=== PATIENT | female | born 1960 | race Caucasian/White ===

== ENCOUNTER 2016-08-08 08:51 | Day surgery (SDC) | payer MEDICARE ==
[2016-08-08] MEDS ORDERED: LACTATED RINGERS 1,000 ML IV ONE (09:25)
[2016-08-08] MEDS ORDERED: fentaNYL 100 MCG/2 ML VIAL IVP ONE (10:16)
[2016-08-08] MEDS ORDERED: MIDAZOLAM 2 MG/2 ML VIAL IVP ONE (10:16)
== END 2016-08-08 08:52 | disposition home or self-care (01) ==
PROC: 0DBN8ZX Excision of Sigmoid Colon, Via Natural or Artificial Opening Endoscopic, Diagnostic (ICD-10-PCS; 2016-08-08)
PROC: 0DBL8ZZ Excision of Transverse Colon, Via Natural or Artificial Opening Endoscopic (ICD-10-PCS; 2016-08-08)
PROC: 0DBK8ZZ Excision of Ascending Colon, Via Natural or Artificial Opening Endoscopic (ICD-10-PCS; principal; 2016-08-08 10:00)
DX: Z12.11 Encounter for screening for malignant neoplasm of colon (principal); D12.2 Benign neoplasm of ascending colon; D12.3 Benign neoplasm of transverse colon; K51.90 Ulcerative colitis, unspecified, without complications; I10 Essential (primary) hypertension; G47.33 Obstructive sleep apnea (adult) (pediatric); Z86.73 Personal history of transient ischemic attack (TIA), and cerebral infarction without residual deficits; Z79.01 Long term (current) use of anticoagulants
CPT/HCPCS: 45380; 45385; J7120

== ENCOUNTER 2016-10-05 09:43 | Outpatient (CLI) | payer MEDICARE ==
[2016-10-05 13:48] LABS: BASOPHILS # (AUTO) 0.1 10^3/uL (0.0-0.1); BASOPHILS % (AUTO) 2.2 %; EOSINOPHILS # (AUTO) 0.1 10^3/uL (0.0-0.7); EOSINOPHILS % (AUTO) 1.1 %; HCT - HEMATOCRIT 40.5 % (37.0-47.0); HGB - HEMOGLOBIN 13.4 g/dL (12.0-16.0); LYMPHOCYTES # (AUTO) 0.9 10^3/uL (1.5-3.5); LYMPHOCYTES % (AUTO) 18.8 %; MEAN CORPUSCULAR HEMOGLOBIN 30.2 pg (27.0-31.0); MEAN CORPUSCULAR HGB CONC 33.2 g/dL (32.0-36.0); MEAN CORPUSCULAR VOLUME 91.2 fL (81.0-99.0); MEAN PLATELET VOLUME 8.7 fL (7.9-10.8); MONOCYTES # (AUTO) 0.5 10^3/uL (0.0-1.0); MONOCYTES % (AUTO) 9.8 %; NEUTROPHILS # (AUTO) 3.4 10^3/uL (1.5-6.6); NEUTROPHILS % (AUTO) 68.1 %; NUCLEATED RED BLOOD CELLS AUTO 0.1 /100WBC; RED BLOOD COUNT 4.44 10^6/uL (4.20-5.40); RED CELL DISTRIBUTION WIDTH 13.1 % (12.0-15.0)
[2016-10-05 14:18] LABS: FERRITIN 42.7 ng/mL (11.0-306.8)
== END 2016-10-05 09:44 | disposition home or self-care (01) ==
LOC: LAB.R 09:43
PROVIDERS: ATTEND Internal Medicine
DX: E61.1 Iron deficiency (principal)
CPT/HCPCS: 82607; 82728; 85025

== ENCOUNTER 2017-03-18 15:29 | Outpatient (CLI) | payer MEDICARE ==
[2017-03-18 15:54] LABS: BASOPHILS % (AUTO) 0.6 %; EOSINOPHILS # (AUTO) 0.2 10^3/uL (0.0-0.7); EOSINOPHILS % (AUTO) 2.3 %; HCT - HEMATOCRIT 38.7 % (37.0-47.0); HGB - HEMOGLOBIN 13.2 g/dL (12.0-16.0); LYMPHOCYTES # (AUTO) 0.8 10^3/uL (1.5-3.5); LYMPHOCYTES % (AUTO) 10.7 %; MEAN CORPUSCULAR HEMOGLOBIN 31.3 pg (27.0-31.0); MEAN CORPUSCULAR HGB CONC 34.2 g/dL (32.0-36.0); MEAN CORPUSCULAR VOLUME 91.3 fL (81.0-99.0); MEAN PLATELET VOLUME 7.5 fL (7.9-10.8); MONOCYTES # (AUTO) 0.7 10^3/uL (0.0-1.0); MONOCYTES % (AUTO) 9.4 %; NEUTROPHILS # (AUTO) 5.9 10^3/uL (1.5-6.6); RED BLOOD COUNT 4.24 10^6/uL (4.20-5.40); RED CELL DISTRIBUTION WIDTH 13.4 % (12.0-15.0); UNCORRECTED WHITE BLOOD COUNT 7.7 x10^3/uL; WHITE BLOOD COUNT 7.7 x10^3/uL (4.8-10.8)
[2017-03-18 16:06] LABS: ALBUMIN/GLOBULIN RATIO 0.9 (1.0-2.2); BILIRUBIN,TOTAL 0.5 mg/dL (0.2-1.0); CALCIUM 8.7 mg/dL (8.5-10.3); POTASSIUM 4.2 mmol/L (3.5-5.0); TOTAL PROTEIN 7.9 g/dL (6.7-8.2)
--- NOTE | 2017-03-18 16:25 | XRAY Report ---
TWO VIEW CHEST: 03/18/2017 CLINICAL INDICATION: Fever. COMPARISON: 04/08/2009. FINDINGS: Frontal and lateral views of the chest demonstrate a normal cardiac silhouette. There is a retrocardiac infiltrate present. No effusion or pneumothorax is seen. IMPRESSION: RETROCARDIAC INFILTRATE. JOB #: [id number] EXT JOB #:[id number]
== END 2017-03-18 15:30 | disposition home or self-care (01) ==
LOC: DI 15:29
PROVIDERS: ATTEND Internal Medicine
DX: R91.8 Other nonspecific abnormal finding of lung field (principal); R50.9 Fever, unspecified
CPT/HCPCS: 36415; 71020; 80053; 85025

== ENCOUNTER 2017-04-25 13:22 | Outpatient (CLI) | payer MEDICARE ==
--- NOTE | 2017-04-26 08:59 | XRAY Report ---
DATE OF SERVICE: 04/25/2017 TWO VIEW CHEST: 04/25/2017 COMPARISON: Two view chest 03/18/2017 INDICATION: Community-acquired pneumonia. TECHNIQUE: Two views of the chest. FINDINGS: Interval resolution of retrocardiac infiltrate. No focal consolidation is seen. No pneumothorax or pleural effusion. Mediastinum unremarkable. IMPRESSION: Interval resolution of pneumonia. No evidence of active pulmonary process. TD: 04/25/2017 20:37 [facility]
== END 2017-04-25 13:23 | disposition home or self-care (01) ==
LOC: DI 13:22
PROVIDERS: ATTEND Physician Assistant Medical
DX: J18.9 Pneumonia, unspecified organism (principal)
CPT/HCPCS: 71046

== ENCOUNTER 2018-02-25 13:47 | Outpatient (CLI) | payer MEDICARE ==
[2018-02-25 14:31] LABS: INR 3.2 (0.8-1.2); PT - PROTHROMBIN TIME 35.4 secs (9.9-12.6)
== END 2018-02-25 13:48 | disposition home or self-care (01) ==
LOC: LAB 13:47
PROVIDERS: ATTEND Internal Medicine
DX: D68.9 Coagulation defect, unspecified (principal); D68.59 Other primary thrombophilia; Z79.01 Long term (current) use of anticoagulants
CPT/HCPCS: 36415; 85610

== ENCOUNTER 2018-03-28 11:29 | Outpatient (CLI) | payer MEDICARE | END 2018-03-28 11:30 | disposition home or self-care (01) | LOC: LAB 11:29 | PROVIDERS: ATTEND Internal Medicine | DX: Z79.01 Long term (current) use of anticoagulants (principal); D68.9 Coagulation defect, unspecified; D68.59 Other primary thrombophilia | CPT/HCPCS: 85610 ==

== ENCOUNTER 2018-04-23 13:22 | Outpatient (CLI) | payer MEDICARE | END 2018-04-23 13:23 | disposition home or self-care (01) | LOC: LAB 13:22 | PROVIDERS: ATTEND Internal Medicine | DX: Z79.01 Long term (current) use of anticoagulants (principal); D68.59 Other primary thrombophilia | CPT/HCPCS: 85610 ==

== ENCOUNTER 2018-05-26 09:35 | Outpatient (CLI) | payer MEDICARE ==
[2018-05-26 09:52] LABS: BASOPHILS # (AUTO) 0.1 10^3/uL (0.0-0.1); EOSINOPHILS # (AUTO) 0.2 10^3/uL (0.0-0.7); EOSINOPHILS % (AUTO) 4.9 %; HGB - HEMOGLOBIN 14.1 g/dL (12.0-16.0); LYMPHOCYTES # (AUTO) 0.9 10^3/uL (1.5-3.5); LYMPHOCYTES % (AUTO) 22.8 %; MEAN CORPUSCULAR HEMOGLOBIN 31.2 pg (27.0-31.0); MEAN CORPUSCULAR HGB CONC 34.1 g/dL (32.0-36.0); MEAN CORPUSCULAR VOLUME 91.4 fL (81.0-99.0); MEAN PLATELET VOLUME 8.3 fL (7.9-10.8); MONOCYTES # (AUTO) 0.3 10^3/uL (0.0-1.0); MONOCYTES % (AUTO) 8.6 %; NEUTROPHILS # (AUTO) 2.5 10^3/uL (1.5-6.6); NEUTROPHILS % (AUTO) 60.7 %; PLT - PLATELET COUNT 173 10^3/uL (130-450); RED BLOOD COUNT 4.53 10^6/uL (4.20-5.40); RED CELL DISTRIBUTION WIDTH 13.2 % (12.0-15.0); WHITE BLOOD COUNT 4.1 x10^3/uL (4.8-10.8)
[2018-05-26 10:07] LABS: HB2 TOTAL 15.6 g/dL; HEMOGLOBIN A1C 0.49 g/dL
[2018-05-26 10:37] LABS: CHOLESTEROL 214 mg/dL; GLUCOSE,FASTING 91 mg/dL (70-100); HDL CHOLESTEROL 54 mg/dL; LDL CHOLESTEROL,CALCULATED 134 mg/dL; LDL/HDL RATIO 2.5 (<4.4); VLDL CHOLESTEROL 26 mg/dL
== END 2018-05-26 09:36 | disposition home or self-care (01) ==
LOC: LAB 09:35
PROVIDERS: ATTEND Registered Nurse
DX: Z00.00 Encounter for general adult medical examination without abnormal findings (principal)
CPT/HCPCS: 36415; 80061; 82947; 83036; 83721; 84443; 85025

== ENCOUNTER 2018-06-25 10:13 | Outpatient (CLI) | payer MEDICARE ==
[2018-06-25 10:31] LABS: BASOPHILS % (AUTO) 1.1 %; EOSINOPHILS # (AUTO) 0.1 10^3/uL (0.0-0.7); EOSINOPHILS % (AUTO) 3.6 %; HGB - HEMOGLOBIN 13.2 g/dL (12.0-16.0); LYMPHOCYTES # (AUTO) 0.8 10^3/uL (1.5-3.5); LYMPHOCYTES % (AUTO) 24.5 %; MEAN CORPUSCULAR HEMOGLOBIN 31.2 pg (27.0-31.0); MEAN CORPUSCULAR HGB CONC 33.9 g/dL (32.0-36.0); MEAN CORPUSCULAR VOLUME 91.9 fL (81.0-99.0); MONOCYTES # (AUTO) 0.2 10^3/uL (0.0-1.0); NEUTROPHILS # (AUTO) 2.1 10^3/uL (1.5-6.6); NEUTROPHILS % (AUTO) 64.8 %; PLT - PLATELET COUNT 166 10^3/uL (130-450); RED BLOOD COUNT 4.24 10^6/uL (4.20-5.40); WHITE BLOOD COUNT 3.2 x10^3/uL (4.8-10.8)
== END 2018-06-25 10:14 | disposition home or self-care (01) ==
LOC: LAB 10:13
PROVIDERS: ATTEND Registered Nurse
DX: Z00.00 Encounter for general adult medical examination without abnormal findings (principal)
CPT/HCPCS: 36415; 85025

== ENCOUNTER 2018-07-11 09:52 | Outpatient (CLI) | payer MEDICARE ==
[2018-07-11 10:23] LABS: BASOPHILS # (AUTO) 0.1 10^3/uL (0.0-0.1); BASOPHILS % (AUTO) 2.2 %; EOSINOPHILS # (AUTO) 0.1 10^3/uL (0.0-0.7); HGB - HEMOGLOBIN 13.2 g/dL (12.0-16.0); LYMPHOCYTES # (AUTO) 0.8 10^3/uL (1.5-3.5); LYMPHOCYTES % (AUTO) 17.9 %; MEAN CORPUSCULAR HEMOGLOBIN 31.2 pg (27.0-31.0); MEAN CORPUSCULAR HGB CONC 34.4 g/dL (32.0-36.0); MEAN CORPUSCULAR VOLUME 90.8 fL (81.0-99.0); MEAN PLATELET VOLUME 8.1 fL (7.9-10.8); MONOCYTES # (AUTO) 0.5 10^3/uL (0.0-1.0); MONOCYTES % (AUTO) 11.2 %; NEUTROPHILS % (AUTO) 66.7 %; PLT - PLATELET COUNT 185 10^3/uL (130-450); RED BLOOD COUNT 4.23 10^6/uL (4.20-5.40); RED CELL DISTRIBUTION WIDTH 12.8 % (12.0-15.0); WHITE BLOOD COUNT 4.4 x10^3/uL (4.8-10.8)
[2018-07-11 10:34] LABS: BILIRUBIN,URINE NEGATIVE (NEGATIVE); GLUCOSE, URINE (UA) NEGATIVE (NEGATIVE); KETONES,URINE (UA) NEGATIVE (NEGATIVE); LEUKOCYTE ESTERASE, URINE NEGATIVE (NEGATIVE); NITRITE,URINE NEGATIVE (NEGATIVE); OCCULT BLOOD,URINE NEGATIVE (NEGATIVE); PROTEIN,URINE NEGATIVE (NEGATIVE); UROBILINOGEN,URINE 0.2 (NORMAL) E.U./dL (NORMAL)
[2018-07-11 10:37] LABS: RHEUMATOID FACTOR NEGATIVE (Negative)
[2018-07-11 10:43] LABS: ALBUMIN 4.1 g/dL (3.2-5.5); ALBUMIN/GLOBULIN RATIO 1.3 (1.0-2.2); ALKALINE PHOSPHATASE 91 IU/L (42-121); ALT ALANINE AMINOTRANSFERASE 24 IU/L (10-60); AST ASPARTATE AMINOTRANSFERASE 31 IU/L (10-42); BILIRUBIN,TOTAL 0.7 mg/dL (0.2-1.0); BUN - BLOOD UREA NITROGEN 21 mg/dL (6-20); CALCIUM 9.2 mg/dL (8.5-10.3); CARBON DIOXIDE - CO2 29 mmol/L (21-32); CHLORIDE 101 mmol/L (101-111); CREATININE 0.9 mg/dL (0.4-1.0); GFR - MDRD 64 (>89); GLUCOSE 76 mg/dL (70-100); SODIUM 136 mmol/L (135-145); TOTAL PROTEIN 7.3 g/dL (6.7-8.2)
[2018-07-11 10:44] LABS: CRP - C-REACTIVE PROTEIN < 1.0 mg/dL (0-1.0)
[2018-07-11 10:50] LABS: CLARITY,URINE CLEAR (CLEAR); RBC,URINE 0-5 /HPF (0-5)
[2018-07-11 10:51] LABS: BACTERIA,URINE Few /HPF (None Seen); SQUAMOUS EPITHELIAL CELL,UR RARE Squamous (<= Few)
== END 2018-07-11 09:53 | disposition home or self-care (01) ==
LOC: LAB 09:52
PROVIDERS: ATTEND Internal Medicine Rheumatology
DX: M32.9 Systemic lupus erythematosus, unspecified (principal); M79.7 Fibromyalgia; M25.50 Pain in unspecified joint
CPT/HCPCS: 36415; 80053; 81001; 84443; 85025; 85651; 86140; 86160; 86200; 86225; 86430

== ENCOUNTER 2018-08-15 15:39 | Outpatient (CLI) | payer MEDICARE ==
--- NOTE | 2018-08-18 15:16 | Mammography Report ---
Reason: PREVENTIVE CARE Procedure Date: 08/15/2018 Accession Number: [id number] / [id number] Procedure: CARY - Screening Mammo w/Manav CPT Code: FULL RESULT: EXAM: Screening Mammo w/Manav DATE: 08/15/2018 4:29 PM CLINICAL HISTORY: Nulliparous patient with history of benign left breast biopsy. For routine screening. TECHNIQUE: (B) - Bilateral CC and MLO views were obtained. COMPARISON: 02/20/2016, 09/30/2014, 09/16/2013, 07/15/2012. PARENCHYMAL PATTERN: (F) - The breasts demonstrate diffuse fatty replacement bilaterally. FINDINGS: There is been no significant interval change on the left. There are no suspicious masses, calcifications, or new areas of distortion. On the right there is an 8 mm well-circumscribed nodular density in the retroareolar 2:00 position 2 to 3 cm from the nipple not definitely seen previously. Otherwise no suspicious right breast masses, calcifications, or areas of architectural distortion.. IMPRESSION: Incomplete examination. BI-RADS category 0. Needs additional evaluation right breast. Negative left breast. RECOMMENDATION: (ADDUS) - Targeted ultrasound recommended. Right breast 2:00 position 2 to 3 cm from the nipple. BI-RADS CATEGORY: (0) - Incomplete Examination - need additional evaluation. STANDARD QUALIFYING STATEMENTS: 1. This examination was not reviewed with the aid of Computer-Aided Detection (CAD). 2. A negative or benign imaging report should not preclude biopsy if clinically suspicious findings are present. 3. Dense breasts may obscure an underlying neoplasm. 4. This examination was reviewed with the aid of 3D breast imaging (tomosynthesis).
== END 2018-08-15 15:40 | disposition home or self-care (01) ==
LOC: DI 15:39
PROVIDERS: ATTEND Registered Nurse
DX: Z12.31 Encounter for screening mammogram for malignant neoplasm of breast (principal); R92.8 Other abnormal and inconclusive findings on diagnostic imaging of breast
CPT/HCPCS: 77063; 77067

== ENCOUNTER 2018-08-22 09:59 | Outpatient (CLI) | payer MEDICARE ==
--- NOTE | 2018-08-22 14:44 | Ultrasound Report ---
Reason: ABNORMAL MAMMOGRAM Procedure Date: 08/22/2018 Accession Number: [id number] / [id number] Procedure: US - Breast Unilateral Limited CPT Code: FULL RESULT: EXAM: Breast Unilateral Limited DATE: 08/22/2018 10:45 AM CLINICAL HISTORY: FOLLOW-UP ABNORMAL MAMMOGRAM COMPARISON: Mammogram 08/15/2018. TECHNIQUE: Targeted ultrasound was performed of the right breast in the area of clinical concern at 2 o'clock and 2 centimeter distance from the nipple. Color Doppler was employed as appropriate. FINDINGS: Corresponding to the mammographic finding is a hypoechoic well-circumscribed 2 x 3 x 4 mm avascular nodule with indeterminate through transmission. A few internal echoes are present. IMPRESSION: Probably benign findings right breast. RECOMMENDATION: Follow-up right breast ultrasound in 3 months. BIRADS CATEGORY 3: Probably Benign RADIA
== END 2018-08-22 10:00 | disposition home or self-care (01) ==
LOC: DI 09:59
PROVIDERS: ATTEND Registered Nurse
DX: N63.12 Unspecified lump in the right breast, upper inner quadrant (principal)
CPT/HCPCS: 76642

== ENCOUNTER 2018-11-11 16:21 | Outpatient (CLI) | payer MEDICARE | END 2018-11-11 16:22 | disposition home or self-care (01) | LOC: LAB 16:21 | PROVIDERS: ATTEND Family Medicine | DX: G47.9 Sleep disorder, unspecified (principal) | CPT/HCPCS: 36415; 80335; 81599 ==

== ENCOUNTER 2018-12-19 14:19 | Outpatient (CLI) | payer MEDICARE ==
--- NOTE | 2018-12-19 16:22 | Ultrasound Report ---
Reason: 3 MO F/U - ABN BREAST US Procedure Date: 12/19/2018 Accession Number: [id number] / [id number] Procedure: US - Breast Unilateral Limited CPT Code: FULL RESULT: EXAM: Breast Unilateral Limited DATE: 12/19/2018 4:15 PM CLINICAL HISTORY: 3 MO F/U - ABN BREAST US COMPARISON: 08/15/2018 and 08/22/2018. TECHNIQUE: Targeted ultrasound was performed of the right breast in the area of clinical concern at 2 o'clock and 3 cm distance from the nipple. Color Doppler was employed as appropriate. FINDINGS: A hypoechoic well-circumscribed 0.3 x 0.2 x 0.2 cm nodule is again seen without convincing increased through transmission, possibly due to small size. There are no associated suspicious features. The finding is either smaller or stable in size, probably benign. No suspicious findings are made. IMPRESSION: Probable benign findings RECOMMENDATION: Recommend diagnostic focused right breast ultrasound in 12 months. BIRADS CATEGORY 3 RADIA
== END 2018-12-19 14:20 | disposition home or self-care (01) ==
LOC: DI 14:19
PROVIDERS: ATTEND Nurse Practitioner Obstetrics & Gynecology
DX: R92.8 Other abnormal and inconclusive findings on diagnostic imaging of breast (principal)
CPT/HCPCS: 76642

== ENCOUNTER 2019-01-01 13:35 | Outpatient (CLI) | payer MEDICARE | END 2019-01-01 13:36 | disposition home or self-care (01) | LOC: LAB 13:35 | PROVIDERS: ATTEND Family Medicine | DX: G47.9 Sleep disorder, unspecified (principal) | CPT/HCPCS: 36415; 80335; 81599 ==

== ENCOUNTER 2019-04-13 09:39 | Outpatient (CLI) | payer MEDICARE | END 2019-04-13 09:40 | disposition critical access hospital (66) | LOC: EMS 09:39 | PROVIDERS: ATTEND Surgery | DX: R55 Syncope and collapse (principal); R42 Dizziness and giddiness; R10.32 Left lower quadrant pain; R11.0 Nausea | CPT/HCPCS: A0425; A0427 ==

== ENCOUNTER 2019-04-13 09:52 | Emergency (ER) | payer MEDICARE ==
[2019-04-13 11:02] LABS: ALBUMIN 3.6 g/dL (3.2-5.5); ALBUMIN/GLOBULIN RATIO 1.2 (1.0-2.2); BILIRUBIN,TOTAL 0.5 mg/dL (0.2-1.0); CALCIUM 8.8 mg/dL (8.5-10.3); CREATININE 1.3 mg/dL (0.4-1.0); TOTAL PROTEIN 6.6 g/dL (6.7-8.2)
[2019-04-13 11:05] LABS: BASOPHILS # (AUTO) 0.1 10^3/uL (0.0-0.1); EOSINOPHILS # (AUTO) 0.1 10^3/uL (0.0-0.7); EOSINOPHILS % (AUTO) 1.4 %; HGB - HEMOGLOBIN 12.5 g/dL (12.0-16.0); LYMPHOCYTES # (AUTO) 0.8 10^3/uL (1.5-3.5); LYMPHOCYTES % (AUTO) 15.7 %; MEAN CORPUSCULAR HEMOGLOBIN 30.3 pg (27.0-31.0); MEAN CORPUSCULAR HGB CONC 32.4 g/dL (32.0-36.0); MEAN CORPUSCULAR VOLUME 93.7 fL (81.0-99.0); MEAN PLATELET VOLUME 10.3 fL (7.9-10.8); MONOCYTES # (AUTO) 0.3 10^3/uL (0.0-1.0); MONOCYTES % (AUTO) 6.4 %; NEUTROPHILS # (AUTO) 3.8 10^3/uL (1.5-6.6); NEUTROPHILS % (AUTO) 75.3 %; PLT - PLATELET COUNT 182 10^3/uL (130-450); RED BLOOD COUNT 4.12 10^6/uL (4.20-5.40); RED CELL DISTRIBUTION WIDTH 12.8 % (12.0-15.0)
--- NOTE | 2019-04-13 11:48 | ED Physician Documentation ---
PD HPI SYNCOPE - Stated complaint Stated Complaint: SYNCOPE - Chief complaint Chief Complaint: Neuro - History obtained from History obtained from: Patient, EMS - History of Present Illness Witnessed: Witnessed Timing - onset: Today Duration: Minutes (about 1-2 minutes) Preceding symptoms: Abdominal pain (patient had onset of cramping severe lower abd pain associated with some nausea, and did have some flatulence/gas. the cramping continued and she got up to go to the bathroom and felt lightheaded. Sat down but still lightheaded and witnessed she got pale, eyes rolled back and she passed out. Lasted 1-2 minutes and was awake by EMS arrival. She got up again when they arrived and felt lightheaded and passed out again for few seconds. EMS noted her BP to be low. Alert and awake enroute to the ER.), Light headed. No: Headache, Chest pain, Palpitations, Generalized weakness Associated symptoms: Abdominal pain. No: Incontinant of urine, Chest pain, Palpitations Contributing factors: Noxious stimulae (had lower abd pain start shortly prior to the syncope.), Just stood up. No: Recent med change, Decreased PO intake Injury occurred: No: Fell, Head injury Treatment [employer]: Fluids Similar symptoms before: Has not had sx before Recently seen: Clinic (had skin cancer removed from nose and right side of neck last week, healing okay without infection.) Review of Systems Constitutional: denies: Fever, Chills, Myalgias Nose: denies: Rhinorrhea / runny nose, Congestion Throat: denies: Sore throat Cardiac: denies: Chest pain / pressure Respiratory: denies: Cough GI: reports: Abdominal Pain, Nausea, Constipation (chronic). denies: Abdominal Swelling, Vomiting, Diarrhea, Bloody / black stool : denies: Dysuria, Frequency Musculoskeletal: denies: Neck pain, Back pain Neurologic: reports: Generalized weakness, Syncope, Headache (for a week). denies: Altered mental status, Head injury Endocrine: denies: Weight loss, Easy bruising / bleeding Immunocompromised: denies: Immunocompromised PD PAST MEDICAL HISTORY - Past Medical History Cardiovascular: Hypertension, Arrhythmia Respiratory: Sleep apnea, CPAP use Endocrine/Autoimmune: HyPOthyroidism, Systemic lupus erythematosus, Other GI: None : None HEENT: None Psych: None Musculoskeletal: Osteoarthritis, Fibromyalgia, Other Derm: None - Past Surgical History Past Surgical History: Yes General: Cholecystectomy - Present Medications Home Medications: Ambulatory Orders Medication Instructions Recorded Confirmed Multivitamin [Multiple Vitamins] 1 each PO DAILY 08/07/16 11/11/17 Cyclobenzaprine [Flexeril] 10 mg PO TID PRN 08/08/16 11/11/17 Duloxetine HCl [Cymbalta] 60 mg PO DAILY 08/08/16 11/11/17 Hydrocodone/Acetaminophen [Vicodin 1 each PO ONCE 08/08/16 11/11/17 5-300 mg Tablet] Hydroxychloroquine [Plaquenil] 400 mg PO DAILY 08/08/16 11/11/17 Lisinopril/Hydrochlorothiazide 1 each PO DAILY PM 08/08/16 11/11/17 [Lisinopril-Hctz 20-12.5 mg Tab] Tramadol HCl [Tramadol HCl ER] 300 mg PO BID 08/08/16 11/11/17 Warfarin Sodium 5 mg PO DAILY 08/08/16 11/11/17 Zolpidem Tartrate [Ambien] 10 mg PO DAILY 08/08/16 11/11/17 Nitrofurantoin Monohyd/M-Cryst 100 mg PO BID #10 capsule 04/13/19 [Macrobid 100 mg Capsule] - Allergies Allergies/Adverse Reactions: Allergies Allergy/AdvReac Type Severity Reaction Status Date / Time No Known Drug Allergies Allergy Verified 04/13/19 09:59 - Social History Does the pt smoke?: No Smoking Status: Never smoker Does the pt drink ETOH?: No Does the pt have substance abuse?: No - Immunizations Immunizations are current?: Yes - POLST Patient has POLST: No PD ED PE NORMAL - Vitals Vital signs reviewed: Yes - General General: Alert and oriented X 3, No acute distress, Well developed/nourished - HEENT HEENT: Atraumatic, Pharynx benign, Other (bandage on nose and right neck without signs of surrounding infection. ) - Neck Neck: Supple, no meningeal sign, No adenopathy - Cardiac Cardiac: RRR, No murmur - Respiratory Respiratory: No respiratory distress, Clear bilaterally - Abdomen Abdomen: Normal bowel sounds, Soft, Non distended, No organomegaly, Other (mildly tender LLQ without percussion nor rebound tenderness. ) - Female Female : Deferred - Rectal Rectal: Deferred - Back Back: No CVA TTP - Derm Derm: Normal color, Warm and dry - Extremities Extremities: No tenderness to palpate, Normal ROM s pain, No edema, No calf tenderness / cord - Neuro Neuro: Alert and oriented X 3, No motor deficit, Normal speech Eye Opening: Spontaneous Motor: Obeys Commands Verbal: Oriented GCS Score: 15 - Psych Psych: Normal mood Results - Vitals Vitals: Vital Signs - 24 hr 04/13/19 04/13/19 04/13/19 09:53 10:10 12:00 Temperature 36.6 C Heart Rate 66 58 L 76 Respiratory 20 14 13 Rate Blood Pressure 99/53 L 111/67 119/63 O2 Saturation 95 96 97 04/13/19 04/13/19 14:38 16:00 Temperature Heart Rate 84 83 Respiratory 16 21 Rate Blood Pressure 147/77 H 144/73 H O2 Saturation 100 98 Oxygen O2 Source Room air - EKG (time done) 09:59 Rate: Rate (enter#) (62) Rhythm: NSR [place]: Normal Intervals: Normal [place] QRS: Normal Ischemia: Normal ST segments. No: ST elevation c/w ischemia, ST depression - Labs Labs: Laboratory Tests 04/13/19 04/13/19 04/13/19 10:40 10:40 10:40 WBC 5.0 RBC 4.12 L Hgb 12.5 Hct 38.6 MCV 93.7 MCH 30.3 MCHC 32.4 RDW 12.8 Plt Count 182 MPV 10.3 Neut # (Auto) 3.8 Lymph # (Auto) 0.8 L [place] # (Auto) 0.3 Eos # (Auto) 0.1 Baso # (Auto) 0.1 Absolute Nucleated RBC 0.00 Nucleated RBC % 0.0 PT 23.2 H INR 2.1 H Sodium 137 Potassium 4.6 Chloride 104 Carbon Dioxide 27 Anion Gap 6.0 BUN 16 Creatinine 1.3 H Estimated GFR (MDRD) 42 L Glucose 122 H Lactic Acid Calcium 8.8 Total Bilirubin 0.5 AST 38 ALT 23 Alkaline Phosphatase 86 Total Protein 6.6 L Albumin 3.6 Globulin 3.0 Albumin/Globulin Ratio 1.2 Lipase 50 Urine Color Urine Clarity Urine pH Ur Specific [place] Urine Protein Urine Glucose (UA) Urine Ketones Urine Occult Blood Urine Nitrite Urine Bilirubin Urine Urobilinogen Ur Leukocyte Esterase Urine RBC Urine WBC Urine WBC Clumps Ur Squamous Epith Cells Urine Bacteria Ur Microscopic Review Urine Culture Comments 04/13/19 04/13/19 12:36 12:54 WBC RBC Hgb Hct MCV MCH MCHC RDW Plt Count MPV Neut # (Auto) Lymph # (Auto) [place] # (Auto) Eos # (Auto) Baso # (Auto) Absolute Nucleated RBC Nucleated RBC % PT INR Sodium Potassium Chloride Carbon Dioxide Anion Gap BUN Creatinine Estimated GFR (MDRD) Glucose Lactic Acid 0.8 Calcium Total Bilirubin AST ALT Alkaline Phosphatase Total Protein Albumin Globulin Albumin/Globulin Ratio Lipase Urine Color YELLOW Urine Clarity CLOUDY Urine pH 6.5 Ur Specific [place] 1.015 Urine Protein NEGATIVE Urine Glucose (UA) NEGATIVE Urine Ketones NEGATIVE Urine Occult Blood NEGATIVE Urine Nitrite NEGATIVE Urine Bilirubin NEGATIVE Urine Urobilinogen 1 (NORMAL) Ur Leukocyte Esterase SMALL H Urine RBC 0-5 Urine WBC 11-25 H Urine WBC Clumps PRESENT Ur Squamous Epith Cells RARE Squamous Urine Bacteria Moderate H Ur Microscopic Review INDICATED Urine Culture Comments INDICATED - Rads (name of study) head CT Radiology: Prelim report reviewed (no acute process), See rad report abd/pelvic CT Radiology: Prelim report reviewed (normal, no acute process), See rad report PD MEDICAL DECISION MAKING - ED course Complexity details: re-evaluated patient (feeling better with some IV fluids and meds. Labs and imaging are good. No signs of acute serious process. ), considered differential (had abd pain with syuncope, so concerned for vascular process, internal bleeding, sepsis, as well as peritoneal process, ureterolithiasis, divertic perf, as pain source with secondary vasovagal. ), d/w patient Departure - Departure Disposition: 01 Home, Self Care Clinical Impression: Lower abdominal pain Syncope Qualifiers: Syncope type: vasovagal syncope Qualified Code(s): R55 - Syncope and collapse Urinary tract infection Qualifiers: Urinary tract infection type: acute cystitis Hematuria presence: without hematuria Qualified Code(s): N30.00 - Acute cystitis without hematuria Condition: Stable Record reviewed to determine appropriate education?: Yes Instructions: ED Abdominal Pain Unkn Cause, ED Syncope Vasovagal Follow-Up: Juan Pleitez MD [Primary Care Provider] - Prescriptions: Nitrofurantoin Monohyd/M-Cryst [Macrobid 100 mg Capsule] 100 mg PO BID #10 capsule Comments: There is a suggestion of a bladder infection on your urine test. Take Macrobid twice a day for 5 days. Otherwise no obvious cause of the lower abdominal pain on your CT scan or blood test. Your fainting episode sounds like a vasovagal episode with transient drop in blood pressure. There is no sign of more significant cause for it. There is no signs of bleeding in the head related to the fall. Use Tylenol if needed for pains. Recheck if consistent pain in the abdomen or other concerns. Discharge Date/Time: 04/13/19 16:16
[2019-04-13] MEDS ORDERED: SODIUM CHLORIDE 0.9% 1,000 ML IV ONE (12:26)
[2019-04-13] MEDS ORDERED: ONDANSETRON 4 MG/2 ML VIAL IVP STA (12:28)
[2019-04-13] MEDS: MORPHINE 2 MG/ML CARPUJECT IVP STA ×2 (12:35→12:42)
[2019-04-13] MEDS ORDERED: traMADol 50 MG TABLET PO STA (12:40)
[2019-04-13] MEDS ORDERED: IOVERSOL 320 100 ML VIAL IVP ONE ×2 (12:50→16:10)
[2019-04-13 13:06] LABS: BILIRUBIN,URINE NEGATIVE (NEGATIVE); GLUCOSE, URINE (UA) NEGATIVE (NEGATIVE); KETONES,URINE (UA) NEGATIVE (NEGATIVE); LEUKOCYTE ESTERASE, URINE SMALL (NEGATIVE); NITRITE,URINE NEGATIVE (NEGATIVE); OCCULT BLOOD,URINE NEGATIVE (NEGATIVE); PH,URINE 6.5 PH (5.0-7.5); PROTEIN,URINE NEGATIVE (NEGATIVE); UROBILINOGEN,URINE 1 (NORMAL) E.U./dL (NORMAL)
[2019-04-13 13:10] LABS: CLARITY,URINE CLOUDY (CLEAR)
[2019-04-13 13:16] LABS: BACTERIA,URINE Moderate /HPF (None Seen); RBC,URINE 0-5 /HPF (0-5); SQUAMOUS EPITHELIAL CELL,UR RARE Squamous (<= Few)
[2019-04-13 13:17] LABS: WBC CLUMPS,URINE PRESENT
--- NOTE | 2019-04-13 14:07 | CT Report ---
Reason: fall, on blood thinner Procedure Date: 04/13/2019 Accession Number: [id number] / [id number] Procedure: CT - HEAD WO CPT Code: Final Report FULL RESULT: EXAM: CT HEAD EXAM DATE: 04/13/2019 01:35 PM. CLINICAL HISTORY: Fall, on blood thinner. COMPARISON: None. TECHNIQUE: Multiaxial CT images were obtained from the foramen magnum to the vertex. Reformats: Sagittal and coronal. IV contrast: None. In accordance with CT protocol optimization, one or more of the following dose reduction techniques were utilized for this exam: automated exposure control, adjustment of mA and/or KV based on patient size, or use of iterative reconstructive technique. FINDINGS: Parenchyma: No intraparenchymal hemorrhage. No evidence of mass, midline shift, or CT findings of infarction. Meadows-white differentiation is distinct. Extraaxial Spaces: Normal for age. No subdural or epidural collections identified. Ventricles: Normal in size and position. Sinuses and Orbits: Imaged paranasal sinuses, orbits, and mastoids show no significant abnormality. Bones: No evidence of fracture or calvarial defect. Other: None. IMPRESSION: No acute traumatic intracranial abnormality. RADIA
--- NOTE | 2019-04-13 14:22 | CT Report ---
Reason: lower abd pain; syncope Procedure Date: 04/13/2019 Accession Number: [id number] / [id number] Procedure: CT - Abdomen/Pelvis W CPT Code: Final Report FULL RESULT: EXAM: CT ABDOMEN AND PELVIS EXAM DATE: 04/13/2019 01:35 PM. CLINICAL HISTORY: Lower abd pain; syncope. COMPARISONS: None. TECHNIQUE: Routine helical CT imaging was performed through the abdomen and pelvis. IV contrast: OPTI 320 100ML. Enteric contrast: No. Reconstructions: Coronal and sagittal. In accordance with CT protocol optimization, one or more of the following dose reduction techniques were utilized for this exam: automated exposure control, adjustment of mA and/or KV based on patient size, or use of iterative reconstructive technique. FINDINGS: Lung Bases: A small hiatal hernia in posterior mediastinum. Liver: An ill-defined subcentimeter heterogeneous lesion in posterior dome of liver (image 17 on series 3), too small to characterize. No masses. Gallbladder/Bile Ducts: Status post cholecystectomy. Spleen: Normal. Pancreas: Normal. Adrenal Glands: Normal. Kidneys: Normal. No masses or hydronephrosis. Peritoneal Cavity/Bowel: Normal. No free fluid, free air or adenopathy. No masses or acute inflammatory process. The appendix is well visualized and normal. Pelvic Organs: Normal. The bladder and visualized pelvic organs are within normal limits. Vasculature: No aneurysms or other significant abnormality. Bones: No significant abnormality. Other: None. IMPRESSION: No significant abdominal pathology. RADIA
[2019-04-13 15:59] LABS: INR 2.1 (0.8-1.2); PT - PROTHROMBIN TIME 23.2 secs (9.9-12.6)
[2019-04-13] MEDS ORDERED: NITROFURANTOIN MACRO 100 MG CAPSULE PO STA (16:02)
[2019-04-13 16:15] VITALS: BP 144/73
== END 2019-04-13 16:16 | disposition home or self-care (01) ==
LOC: EDUNIT# → ED 09:52
DX: R55 Syncope and collapse (principal); N30.00 Acute cystitis without hematuria; R10.32 Left lower quadrant pain; R11.0 Nausea; R03.1 Nonspecific low blood-pressure reading; I10 Essential (primary) hypertension; M32.9 Systemic lupus erythematosus, unspecified; Z79.01 Long term (current) use of anticoagulants
CPT/HCPCS: 36415; 70450; 74177; 80053; 81001; 83605; 83690; 85025; 85610; 87077; 87086; 87181; 93005; 96361; 96374; 99284; A9270; Q9967; 81003

== ENCOUNTER 2019-05-05 11:59 | Outpatient (CLI) | payer MEDICARE ==
[2019-05-05 13:13] LABS: THYROID STIMULATING HORMONE 1.19 uIU/mL (0.34-5.60)
[2019-05-05 13:15] LABS: FREE T4 (FREE THYROXINE) 0.8 ng/dL (0.58-1.64)
== END 2019-05-05 12:00 | disposition home or self-care (01) ==
LOC: LAB 11:59
PROVIDERS: ATTEND Family Medicine
DX: E06.3 Autoimmune thyroiditis (principal)
CPT/HCPCS: 36415; 84439; 84443; 84481

== ENCOUNTER 2019-06-08 12:19 | Outpatient (CLI) | payer MEDICARE ==
[2019-06-08] MEDS ORDERED: IOVERSOL 320 100 ML VIAL IVP ONE ×2 (12:41→13:54)
[2019-06-08 12:56] LABS: CALCIUM 9.3 mg/dL (8.5-10.3)
--- NOTE | 2019-06-09 09:33 | CT Report ---
Reason: LT HEMIPLEGIA AND HEMIPARESIS DUE TO CVA Procedure Date: 06/08/2019 Accession Number: [id number] / [id number] Procedure: CT - ANGIO HEAD W/WO CPT Code: Final Report FULL RESULT: EXAM: CT ANGIOGRAM HEAD. CT SCAN OF THE HEAD WITHOUT AND WITH CONTRAST. EXAM DATE: 06/08/2019 01:47 PM CLINICAL HISTORY: Reported history of left hemiplegia and a hemiparesis due to CVA. COMPARISON: HEAD W/O 04/13/2019. TECHNIQUE: - CT Scan Head: Using a multidetector scanner, axial images were acquired from the foramen magnum to the skull vertex prior to and following contrast administration. - CT Angiogram: Using a multidetector scanner, high-resolution axial images were acquired from the skull base through vertex following rapid infusion of intravenous contrast. Reformats: Multiplanar MIP reformats were reconstructed. NASCET criteria used for stenosis measurement. IV Contrast: 80 mL Optiray 320. In accordance with CT protocol optimization, one or more of the following dose reduction techniques were utilized for this exam: automated exposure control, adjustment of mA and/or KV based on patient size, or use of iterative reconstructive technique. FINDINGS: Brain CT without contrast: Stable unremarkable CT appearance of the brain. No evidence for hemorrhage, stroke, mass or hydrocephalus. ASPECTS 10. No acute sinus or mastoid opacity. No acute calvarial defect. Brain CT with IV contrast: No abnormal enhancement. Head CT angiogram: Patent distal internal carotid arteries, which show mild atherosclerotic disease with calcified plaque but no flow-limiting stenosis. 1.5 mm conical protrusion from the right supraclinoid ICA, more likely incidental infundibulum than aneurysm. Congenitally hypoplastic right intradural vertebral artery. Strongly dominant left intradural vertebral artery that continues as the basilar artery. No evidence for acute or acquired intracranial vertebrobasilar insufficiency. No evidence for proximal flow-limiting stenosis, occlusion or filling defect of the anterior, middle or posterior cerebral arteries. No evidence for major dural venous sinus thrombus filling defect. IMPRESSION: CT Head: No CT evidence of acute intracranial abnormality. No abnormal enhancement. CTA Head: Distal ICA atherosclerosis. Right supraclinoid ICA probable infundibulum. No proximal intracranial large-vessel occlusion or flow-limiting stenosis. The above findings do not preclude the possibility of small or recent ischemic infarct, for which brain MRI is more sensitive. RADIA
== END 2019-06-08 12:20 | disposition home or self-care (01) ==
LOC: LAB 12:19
PROVIDERS: ATTEND Family Medicine
DX: I65.23 Occlusion and stenosis of bilateral carotid arteries (principal); I69.954 Hemiplegia and hemiparesis following unspecified cerebrovascular disease affecting left non-dominant side
CPT/HCPCS: 36415; 70496; 80048; Q9967

== ENCOUNTER 2019-09-07 08:00 | Outpatient (CLI) | payer MEDICARE | END 2019-09-07 23:59 | disposition home or self-care (01) | LOC: LAB.WCP 08:00 | PROVIDERS: ATTEND Family Medicine | DX: G47.9 Sleep disorder, unspecified (principal); M60.9 Myositis, unspecified | CPT/HCPCS: 36415; 80335; 81599 ==

== ENCOUNTER 2020-05-18 12:36 | Outpatient (CLI) | payer MEDICARE ==
--- NOTE | 2020-05-18 13:45 | XRAY Report ---
PROCEDURE: Knee 3 View LT INDICATIONS: LEFT KNEE EFFUSION TECHNIQUE: 3 views of the left knee(s) were acquired. COMPARISON: None. FINDINGS: Bones: No fractures or dislocations. No suspicious bony lesions. Mild medial and minimal patellofe moral compartment narrowing. No erosions. Soft tissues: Mild joint effusion. No suspicious soft tissue calcifications. IMPRESSION: Mild effusion. Minimal to mild medial and patellofemoral compartment narrowing suggestiv e of early osteoarthritis. Reviewed by: Zahira Alanis MD on 05/18/2020 1:44 PM PST Approved by: Zahira Alanis MD on 05/18/2020 1:44 PM PST Station ID: [id number]
== END 2020-05-18 12:37 | disposition home or self-care (01) ==
LOC: DI 12:36
PROVIDERS: ATTEND Family Medicine
DX: M25.462 Effusion, left knee (principal)

== ENCOUNTER 2020-05-24 08:00 | Outpatient (CLI) | payer MEDICARE ==
[2020-05-24 09:32] LABS: BASOPHILS # (AUTO) 0.1 10^3/uL (0.0-0.1); BASOPHILS % (AUTO) 1.4 %; EOSINOPHILS # (AUTO) 0.1 10^3/uL (0.0-0.7); EOSINOPHILS % (AUTO) 2.1 %; HGB - HEMOGLOBIN 14.2 g/dL (12.0-16.0); LYMPHOCYTES % (AUTO) 24.4 %; MEAN CORPUSCULAR HGB CONC 32.3 g/dL (32.0-36.0); MEAN CORPUSCULAR VOLUME 92.8 fL (81.0-99.0); MEAN PLATELET VOLUME 10.1 fL (7.9-10.8); MONOCYTES # (AUTO) 0.3 10^3/uL (0.0-1.0); NEUTROPHILS # (AUTO) 2.8 10^3/uL (1.5-6.6); NEUTROPHILS % (AUTO) 64.9 %; PLT - PLATELET COUNT 215 10^3/uL (130-450); RED BLOOD COUNT 4.74 10^6/uL (4.20-5.40); RED CELL DISTRIBUTION WIDTH 12.6 % (12.0-15.0); WHITE BLOOD COUNT 4.3 x10^3/uL (4.8-10.8)
[2020-05-24 10:09] LABS: % IRON SATURATION 29 % (20-50); ALBUMIN 3.9 g/dL (3.2-5.5); ALBUMIN/GLOBULIN RATIO 1.3 (1.0-2.2); ALKALINE PHOSPHATASE 110 IU/L (42-121); ALT ALANINE AMINOTRANSFERASE 13 IU/L (10-60); BILIRUBIN,TOTAL 0.5 mg/dL (0.2-1.0); CARBON DIOXIDE - CO2 28 mmol/L (21-32); CHLORIDE 99 mmol/L (101-111); CHOL/HDL RATIO 3.9 (<4.4); CHOLESTEROL 193 mg/dL; GLUCOSE 101 mg/dL (70-100); HDL CHOLESTEROL 49 mg/dL; IRON 96 ug/dL (28-170); LDL CHOLESTEROL,CALCULATED 114 mg/dL; LDL/HDL RATIO 2.3 (<4.4); TOTAL IRON BINDING CAPACITY 326 ug/dL (250-450); TRANSFERRIN 233 mg/dL (192-382); VLDL CHOLESTEROL 30 mg/dL
[2020-05-24 10:47] LABS: AST ASPARTATE AMINOTRANSFERASE 22 IU/L (10-42); BUN - BLOOD UREA NITROGEN 13 mg/dL (6-20); CREATININE 1.1 mg/dL (0.4-1.0)
[2020-05-24 16:53] LABS: FERRITIN 33.8 ng/mL (11.0-306.8)
[2020-05-24 16:56] LABS: FOLATE 12.62 ng/mL (5.90 - >24.8)
== END 2020-05-24 23:59 | disposition home or self-care (01) ==
LOC: LAB 08:00
PROVIDERS: ATTEND Family Medicine
DX: E55.9 Vitamin D deficiency, unspecified (principal); D64.9 Anemia, unspecified; E06.3 Autoimmune thyroiditis; I10 Essential (primary) hypertension; G47.9 Sleep disorder, unspecified; D68.59 Other primary thrombophilia; L93.0 Discoid lupus erythematosus; E78.00 Pure hypercholesterolemia, unspecified; M79.7 Fibromyalgia
CPT/HCPCS: 36415; 80053; 80061; 82607; 82728; 82746; 83540; 83721; 84443; 84466; 85025

== ENCOUNTER 2020-06-20 08:00 | Outpatient (CLI) | payer MEDICARE | END 2020-06-20 23:59 | disposition home or self-care (01) | LOC: LAB.WCP 08:00 | PROVIDERS: ATTEND Family Medicine | DX: D68.51 Activated protein C resistance (principal); Z79.01 Long term (current) use of anticoagulants; D68.59 Other primary thrombophilia ==

== ENCOUNTER 2020-07-07 08:00 | Outpatient (CLI) | payer MEDICARE | END 2020-07-07 23:59 | disposition home or self-care (01) | LOC: LAB.WCP 08:00 | PROVIDERS: ATTEND Family Medicine | DX: D68.51 Activated protein C resistance (principal); Z79.01 Long term (current) use of anticoagulants; D68.59 Other primary thrombophilia; M32.9 Systemic lupus erythematosus, unspecified ==

== ENCOUNTER 2020-07-12 10:19 | Outpatient (CLI) | payer MEDICARE ==
--- NOTE | 2020-07-13 13:38 | Ultrasound Report ---
LIMITED ULTRASOUND OF RIGHT BREAST: 07/12/2020 CLINICAL: Patient returns for 1 year follow-up of a probably benign cyst in the right breast. Comparison is made to exams dated: 07/12/2020 mammogram, 12/19/2018 ultrasound, 08/15/2018 mammogram, 1 mammogram, and 09/30/2014 mammogram - [facility]. Color flow and real-time ultrasound of the right breast 2 o'clock region were performed. Meadows scale images of the real-time examination were reviewed. There is a stable benign 0.2 cm x 0.2 cm x 0.2 cm round simple cyst in the right breast at 2 o'clock anterior depth 3 cm from the nipple. This round simple cyst is anechoic with a well-defined boundary . This correlates with mammography findings. Color flow imaging demonstrates that there is no vascu larity present. IMPRESSION: BENIGN There is no sonographic evidence of malignancy. Stable 0.2 cm round cyst in the right breast is consistent with a simple cyst and is benign. A 1 year screening mammogram is recommended. Exam findings were conveyed to the patient. This exam was interpreted at Station ID: [id number]. Electronically Signed By: Rafi Wilson M.D. slc/:07/12/2020 12:16:29 Ultrasound BI-RADS: 2 Benign BI-RADS CATEGORY: (2) - 2 RECOMMENDATION: (ANNUAL) - Recommend routine annual screening mammography. [id number] 1 year screening LATERALITY: (B)
--- NOTE | 2020-07-13 13:38 | Mammography Report ---
BILATERAL DIGITAL DIAGNOSTIC MAMMOGRAM 3D/2D: 07/12/2020 CLINICAL: Multiple family memebers with breast cancer. Comparison is made to exams dated: 08/15/2018 mammogram, 02/20/2016 mammogram, 09/30/2014 mammogram, mammogram, and 12/19/2018 ultrasound - [facility]. The tissue of both linsey sts is predominantly fatty. There is a stable 0.2 cm round mass with a circumscribed margin in the right breast at 2 o'clock ante rior depth. This correlates with ultrasound findings. This appears to be stable dating back to 2015. No other significant masses, calcifications, or other findings are seen in either breast. IMPRESSION: INCOMPLETE: NEEDS ADDITIONAL IMAGING EVALUATION Stable 0.2 cm round mass in the right breast resembles a cyst and is indeterminate. A targeted ultrasound is recommended and will immediately follow. This exam was interpreted at Station ID: [id number]. NOTE: For mammograms, a report in lay terms will be sent to the patient. Approximately 15% of breast malignancies will not be visualized mammographically. In the management of a palpable breast mass, a negative mammogram must not discourage biopsy of a clinically suspicious lesion. Electronically Signed By: Rafi Wilson M.D. slc/:07/12/2020 12:08:20 ACR BI-RADS Category 0: Incomplete 3340F PARENCHYMAL PATTERN: (F) - The breast(s) demonstrate(s) diffuse fatty replacement. BI-RADS CATEGORY: (0) - 0 Ultrasound [id number] Immediate follow-up LATERALITY: (B)
== END 2020-07-12 10:20 | disposition home or self-care (01) ==
LOC: DI 10:19
PROVIDERS: ATTEND Family Medicine
DX: R92.8 Other abnormal and inconclusive findings on diagnostic imaging of breast (principal); N60.01 Solitary cyst of right breast; Z80.3 Family history of malignant neoplasm of breast

== ENCOUNTER 2021-06-30 09:11 | Outpatient (CLI) | payer MEDICARE ==
[2021-06-30 09:32] LABS: BASOPHILS # (AUTO) 0.1 10^3/uL (0.0-0.1); BASOPHILS % (AUTO) 1.2 %; EOSINOPHILS # (AUTO) 0.1 10^3/uL (0.0-0.7); HCT - HEMATOCRIT 40.4 % (37.0-47.0); HGB - HEMOGLOBIN 13.4 g/dL (12.0-16.0); LYMPHOCYTES # (AUTO) 0.9 10^3/uL (1.5-3.5); LYMPHOCYTES % (AUTO) 22.8 %; MEAN CORPUSCULAR HEMOGLOBIN 30.4 pg (27.0-31.0); MEAN CORPUSCULAR HGB CONC 33.2 g/dL (32.0-36.0); MEAN CORPUSCULAR VOLUME 91.6 fL (81.0-99.0); MEAN PLATELET VOLUME 10.2 fL (7.9-10.8); MONOCYTES # (AUTO) 0.3 10^3/uL (0.0-1.0); MONOCYTES % (AUTO) 6.9 %; NEUTROPHILS # (AUTO) 2.7 10^3/uL (1.5-6.6); NEUTROPHILS % (AUTO) 66.9 %; PLT - PLATELET COUNT 180 10^3/uL (130-450); RED BLOOD COUNT 4.41 10^6/uL (4.20-5.40); RED CELL DISTRIBUTION WIDTH 12.7 % (12.0-15.0); WHITE BLOOD COUNT 4.1 x10^3/uL (4.8-10.8)
[2021-06-30 09:49] LABS: ALBUMIN 4.1 g/dL (3.2-5.5); ALBUMIN/GLOBULIN RATIO 1.2 (1.0-2.2); ALKALINE PHOSPHATASE 89 IU/L (42-121); ALT ALANINE AMINOTRANSFERASE 16 IU/L (10-60); AST ASPARTATE AMINOTRANSFERASE 26 IU/L (10-42); BILIRUBIN,TOTAL 0.5 mg/dL (0.2-1.0); BUN - BLOOD UREA NITROGEN 13 mg/dL (6-20); CALCIUM 9.2 mg/dL (8.5-10.3); CARBON DIOXIDE - CO2 27 mmol/L (21-32); CHLORIDE 102 mmol/L (101-111); CHOL/HDL RATIO 2.6 (<4.4); CHOLESTEROL 140 mg/dL; GFR - MDRD 56 (>89); GLUCOSE 108 mg/dL (70-100); HDL CHOLESTEROL 54 mg/dL; LDL CHOLESTEROL,CALCULATED 65 mg/dL; LDL/HDL RATIO 1.2 (<4.4); POTASSIUM 4.4 mmol/L (3.5-5.0); SODIUM 138 mmol/L (135-145); TOTAL PROTEIN 7.4 g/dL (6.7-8.2); TRIGLYCERIDES 106 mg/dL; VLDL CHOLESTEROL 21 mg/dL
[2021-06-30 10:01] LABS: THYROID STIMULATING HORMONE 1.49 uIU/mL (0.34-5.60)
== END 2021-06-30 09:12 | disposition home or self-care (01) ==
LOC: LAB 09:11
PROVIDERS: ATTEND Family Medicine
DX: I10 Essential (primary) hypertension (principal); F32.A Depression, unspecified; E55.9 Vitamin D deficiency, unspecified; D64.9 Anemia, unspecified; M79.7 Fibromyalgia; D68.51 Activated protein C resistance; E06.3 Autoimmune thyroiditis; Z79.01 Long term (current) use of anticoagulants; D68.59 Other primary thrombophilia; M32.9 Systemic lupus erythematosus, unspecified; E78.00 Pure hypercholesterolemia, unspecified
CPT/HCPCS: 36415; 80053; 80061; 82306; 83721; 84443; 85025

== ENCOUNTER 2022-04-21 08:54 | Outpatient (CLI) | payer MEDICARE ==
[2022-04-21 09:11] LABS: BASOPHILS # (AUTO) 0.1 10^3/uL (0.0-0.1); BASOPHILS % (AUTO) 1.1 %; EOSINOPHILS # (AUTO) 0.1 10^3/uL (0.0-0.7); EOSINOPHILS % (AUTO) 2.6 %; HCT - HEMATOCRIT 42.9 % (37.0-47.0); HGB - HEMOGLOBIN 13.8 g/dL (12.0-16.0); LYMPHOCYTES # (AUTO) 1.2 10^3/uL (1.5-3.5); LYMPHOCYTES % (AUTO) 26.2 %; MEAN CORPUSCULAR HEMOGLOBIN 29.6 pg (27.0-31.0); MEAN CORPUSCULAR HGB CONC 32.2 g/dL (32.0-36.0); MEAN CORPUSCULAR VOLUME 91.9 fL (81.0-99.0); MEAN PLATELET VOLUME 9.6 fL (7.9-10.8); MONOCYTES # (AUTO) 0.3 10^3/uL (0.0-1.0); MONOCYTES % (AUTO) 6.2 %; NEUTROPHILS % (AUTO) 63.7 %; PLT - PLATELET COUNT 235 10^3/uL (130-450); RED BLOOD COUNT 4.67 10^6/uL (4.20-5.40); RED CELL DISTRIBUTION WIDTH 13.3 % (12.0-15.0); WHITE BLOOD COUNT 4.7 x10^3/uL (4.8-10.8)
[2022-04-21 09:32] LABS: ALBUMIN 4.2 g/dL (3.2-5.5); ALBUMIN/GLOBULIN RATIO 1.2 (1.0-2.2); ALKALINE PHOSPHATASE 99 IU/L (42-121); ALT ALANINE AMINOTRANSFERASE 13 IU/L (10-60); AST ASPARTATE AMINOTRANSFERASE 23 IU/L (10-42); BILIRUBIN,TOTAL 0.7 mg/dL (0.2-1.0); BUN - BLOOD UREA NITROGEN 14 mg/dL (6-20); CALCIUM 9.2 mg/dL (8.5-10.3); CARBON DIOXIDE - CO2 29 mmol/L (21-32); CHLORIDE 102 mmol/L (101-111); CHOL/HDL RATIO 2.4 (<4.4); CHOLESTEROL 142 mg/dL; CREATININE 1.1 mg/dL (0.4-1.0); GFR - MDRD 50 (>89); GLUCOSE 125 mg/dL (70-100); HDL CHOLESTEROL 60 mg/dL; LDL CHOLESTEROL,CALCULATED 64 mg/dL; LDL/HDL RATIO 1.1 (<4.4); POTASSIUM 4.4 mmol/L (3.5-5.0); SODIUM 139 mmol/L (135-145); TOTAL PROTEIN 7.7 g/dL (6.7-8.2); TRIGLYCERIDES 90 mg/dL; VLDL CHOLESTEROL 18 mg/dL
[2022-04-21 09:43] LABS: THYROID STIMULATING HORMONE 1.5 uIU/mL (0.34-5.60)
== END 2022-04-21 08:55 | disposition home or self-care (01) ==
LOC: LAB 08:54
PROVIDERS: ATTEND Family Medicine
DX: I10 Essential (primary) hypertension (principal); E78.00 Pure hypercholesterolemia, unspecified; E55.9 Vitamin D deficiency, unspecified; D64.9 Anemia, unspecified; M79.7 Fibromyalgia; D68.51 Activated protein C resistance; E06.3 Autoimmune thyroiditis; M32.9 Systemic lupus erythematosus, unspecified
CPT/HCPCS: 36415; 80053; 80061; 81599; 83721; 84443; 85025; 86038

== ENCOUNTER 2023-04-09 10:39 | Outpatient (CLI) | payer MEDICARE ==
[2023-04-09 10:51] LABS: BASOPHILS # (AUTO) 0.1 10^3/uL (0.0-0.1); BASOPHILS % (AUTO) 1.2 %; EOSINOPHILS # (AUTO) 0.1 10^3/uL (0.0-0.7); EOSINOPHILS % (AUTO) 3.4 %; HCT - HEMATOCRIT 40.6 % (37.0-47.0); HGB - HEMOGLOBIN 13.3 g/dL (12.0-16.0); LYMPHOCYTES # (AUTO) 1.2 10^3/uL (1.5-3.5); LYMPHOCYTES % (AUTO) 28.3 %; MEAN CORPUSCULAR HEMOGLOBIN 29.3 pg (27.0-31.0); MEAN CORPUSCULAR HGB CONC 32.8 g/dL (32.0-36.0); MEAN CORPUSCULAR VOLUME 89.4 fL (81.0-99.0); MEAN PLATELET VOLUME 9.9 fL (7.9-10.8); MONOCYTES # (AUTO) 0.4 10^3/uL (0.0-1.0); MONOCYTES % (AUTO) 8.7 %; NEUTROPHILS # (AUTO) 2.4 10^3/uL (1.5-6.6); NEUTROPHILS % (AUTO) 58.2 %; PLT - PLATELET COUNT 209 10^3/uL (130-450); RED BLOOD COUNT 4.54 10^6/uL (4.20-5.40); RED CELL DISTRIBUTION WIDTH 12.8 % (12.0-15.0); WHITE BLOOD COUNT 4.1 x10^3/uL (4.8-10.8)
[2023-04-09 11:25] LABS: ALBUMIN 4.1 g/dL (3.2-5.5); ALBUMIN/GLOBULIN RATIO 1.4 (1.0-2.2); ALKALINE PHOSPHATASE 103 IU/L (42-121); ALT ALANINE AMINOTRANSFERASE 10 IU/L (10-60); AST ASPARTATE AMINOTRANSFERASE 20 IU/L (10-42); BILIRUBIN,TOTAL 0.5 mg/dL (0.2-1.0); BUN - BLOOD UREA NITROGEN 13 mg/dL (6-20); CALCIUM 9.5 mg/dL (8.5-10.3); CARBON DIOXIDE - CO2 30 mmol/L (21-32); CHLORIDE 103 mmol/L (101-111); CHOL/HDL RATIO 2.3 (<4.4); CHOLESTEROL 124 mg/dL; CREATININE 0.9 mg/dL (0.6-1.3); GFR - MDRD 63 (>89); GLUCOSE 94 mg/dL (74-104); HDL CHOLESTEROL 53 mg/dL; LDL CHOLESTEROL,CALCULATED 44 mg/dL; LDL/HDL RATIO 0.8 (<4.4); POTASSIUM 4.2 mmol/L (3.5-4.5); SODIUM 138 mmol/L (135-145); TRIGLYCERIDES 133 mg/dL (48-352); VLDL CHOLESTEROL 27 mg/dL
[2023-04-09 11:32] LABS: THYROID STIMULATING HORMONE 1.33 uIU/mL (0.34-5.60)
== END 2023-04-09 10:40 | disposition home or self-care (01) ==
LOC: LAB 10:39
PROVIDERS: ATTEND Family Medicine
DX: D64.9 Anemia, unspecified (principal); F32.A Depression, unspecified; E04.0 Nontoxic diffuse goiter; E55.9 Vitamin D deficiency, unspecified; M79.7 Fibromyalgia; D68.51 Activated protein C resistance; E78.00 Pure hypercholesterolemia, unspecified
CPT/HCPCS: 36415; 80053; 80061; 82306; 83721; 84443; 85025

== ENCOUNTER 2023-04-10 15:34 | Outpatient (CLI) | payer MEDICARE ==
--- NOTE | 2023-04-10 17:37 | XRAY Report ---
PROCEDURE: Shoulder 3 View LT INDICATIONS: LEFT SHOULDER IMPINGEMENT SYNDROME TECHNIQUE: 3 views of the shoulder were acquired. COMPARISON: None. FINDINGS: Bones: No fractures or dislocations. No suspicious bony lesions. Visualized ribs appear intact. Glenohumeral and acromioclavicular joint space narrowing with associated osteophytosis. Soft tissues: No suspicious soft tissue calcifications. The visualized lungs are within normal limi ts. IMPRESSION: No acute bony abnormality. Mild shoulder osteoarthritis. Reviewed by: Bony Larson MD on 04/10/2023 5:35 PM PST Approved by: Bony Larson MD on 04/10/2023 5:35 PM PST Station ID: [id number]
== END 2023-04-10 15:35 | disposition home or self-care (01) ==
LOC: DI 15:34
PROVIDERS: ATTEND Family Medicine
DX: M75.42 Impingement syndrome of left shoulder (principal); M19.012 Primary osteoarthritis, left shoulder